=== PATIENT | male | born 1980 | race Two or more races ===

== ENCOUNTER 2022-01-02 00:42 | Emergency (ER) | payer SELFPAY ==
[~2022-01-02] VITALS: Ht 172.7 cm; Wt 82.0 kg
[2022-01-02] MEDS ORDERED: ONDANSETRON HCL 4MG/2ML INJ IV STA (01:14)
[2022-01-02] MEDS ORDERED: SODIUM CHLORIDE 0.9% 1,000 ML IV ONE (01:15)
[2022-01-02 03:20] LABS: BASOPHILS % 0.2 % (0.0-2.0); HEMATOCRIT. 43.5 % (42.0-52.0); HEMOGLOBIN. 14.8 g/dL (14.0-18.0); MEAN CORPUSCULAR HEMOGLOBIN 30.8 pg (28.0-32.0); MEAN CORPUSCULAR VOLUME 90.3 fL (80.0-94.0); MEAN PLATELET VOLUME 6.4 fl (7.4-10.4); MONOCYTES % 2.9 % (2.0-8.0); NEUTROPHILS % 85.9 % (40.0-76.0); PLATELET 254 x1000/uL (130-400); RED BLOOD CELL COUNT 4.81 mill/uL (4.7-6.1); RED CELL DISTRIBUTION WIDTH 13.1 % (11.6-14.6)
[2022-01-02 03:33] LABS: CHLORIDE 108 mEq/L (98-107)
[2022-01-02 03:40] LABS: ETHANOL BLOOD 187 mg/dL
[2022-01-02 04:47] VITALS: BP 130/86
== END 2022-01-02 04:48 | disposition home or self-care (01) ==
LOC: ER 00:42
DX: R41.82 Altered mental status, unspecified (principal); T51.91XA Toxic effect of unspecified alcohol, accidental (unintentional), initial encounter; Y92.89 Other specified places as the place of occurrence of the external cause; F10.129 Alcohol abuse with intoxication, unspecified; Y90.6 Blood alcohol level of 120-199 mg/100 ml
CPT/HCPCS: 36415; 80053; 80320; 85025; 96361; 96374; 99283; J2405; J7030; Z7610; G0480